=== PATIENT | male | born 2000 | race Caucasian/White ===

== ENCOUNTER 2019-02-21 23:33 | Emergency (ER) | payer SELFPAY ==
[~2019-02-21] VITALS: Ht 182.9 cm; Wt 81.6 kg
[2019-02-21 23:33] VITALS: BP 115/60
--- NOTE | 2019-02-21 23:48 | NUR ---
ELIANE TEJADA. TAKEN TO BED 1
--- NOTE | 2019-02-22 00:10 | NUR ---
18/M PRESENTED TO ED [facility] FROM [facility] WITH C/O VOMITING, UNKNOWN AMOUNT OF ALCOHOL INTAKE, PATIENT ETOH. AWAKE AND ALERT AT THIS TIME. EMESIS BAG AT BEDSIDE. VSS. WILL CONTINUE TO MONITOR.
--- NOTE | 2019-02-22 00:29 | NUR ---
PT RESTING IN BED. EMESIS BAG AT BEDSIDE. DROWSY AT THIS MOMENT. ABLE TO MAKE NEEDS KNOWN. WILL CONTINUE TO MONITOR.
--- NOTE | 2019-02-22 00:50 | NUR ---
Dr. Chi examining patient.
--- NOTE | 2019-02-22 01:30 | NUR ---
PT IS SLEEPING IN BED. EVEN UNLABORED BREATHING. PENDING DISCHARGE. BUT UNABLE TO PROVIDE INFORMATION FOR TRANSPORTATION HOME DUE TO CONDITION. NO SIGNS OF DISTRESS. WILL CONTINUE TO MONITOR.
--- NOTE | 2019-02-22 03:00 | NUR ---
BLOOD SUGAR TAKEN 115. VSS. ABLE TO MAKE NEEDS KNOWN. AWAKE AND ALERT. PT WILL CALL FRIEND FOR TRANSPORTATION
--- NOTE | 2019-02-22 03:09 | NUR ---
PT STATES HIS FRIEND IS ABLE TO PICK HIM UP FOR TRANSPORTATION.
--- NOTE | 2019-02-22 03:35 | NUR ---
PT STATED THAT HIS ROOMATE IS IN LOBBY READY TO PICK HIM UP. AWAKE ALERT ABLE TO AMBULATE WITH STEADY GAIT. NO SIGNS OF DISTRESS. VSS.
[2019-02-22 03:40] VITALS: BP 121/67
--- NOTE | 2019-02-22 03:40 | NUR ---
Patient discharged with v/s stable. Written and verbal after care instructions given and explained. Patient verbalized understanding. Ambulatory with steady gait. All questions addressed prior to discharge. Advised to follow up with PMD. PICKED UP AND TRANSPORTED HOME BY ROOMATE.
== END 2019-02-22 03:40 | disposition home or self-care (01) ==
LOC: MED 23:33
DX: F10.129 Alcohol abuse with intoxication, unspecified (principal); R11.2 Nausea with vomiting, unspecified
CPT/HCPCS: 82948; 99283